=== PATIENT | female | born 1970 | race Caucasian/White ===

== ENCOUNTER 2017-03-26 14:16 | Emergency (ER) | payer SELFPAY ==
[2017-03-26] MEDS ORDERED: Albuterol/Ipratropium 3.0-0.5 MG/3 ML Neb Soln NEB ONE (14:29)
--- NOTE | 2017-03-26 14:59 | EDM.PDOC ---
ED HPI GENERAL MEDICAL PROBLEM - General Chief Complaint: Respiratory Problem Stated Complaint: ASTHMA/TROUBLE BREATHING Time Seen by Provider: 03/26/17 14:22 Source of Information: Reports: Patient History Limitations: Reports: No Limitations - History of Present Illness INITIAL COMMENTS - FREE TEXT/NARRATIVE: HISTORY AND PHYSICAL: History of present illness: Patient is a 46-year-old female who presents to the emergency room today with complaints of asthma "flareup". States she has a Ventolin inhaler which she uses for her asthma symptoms and over the past 4 days she has had more difficulty breathing, cough and unable to get relief with her medication. Does state that when she feels her chest is tight with her breathing she does have some pain located to the right anterior chest wall. This is nonradiating. Is not accompanied by diaphoresis, nausea, vomiting. Denies any fever or chills. Review of systems: As per history of present illness and below otherwise all systems reviewed and negative. Past medical history: As per history of present illness and as reviewed below otherwise noncontributory. Surgical history: As per history of present illness and as reviewed below otherwise noncontributory. Social history: No reported history of drug or alcohol abuse. Family history: As per history of present illness and as reviewed below otherwise noncontributory. Physical exam: Gen.: Well-developed and well-nourished 46-year-old female. Appears nontoxic. Able to speak in full sentences without shortness of breath. Alert and oriented. HEENT: Atraumatic, normocephalic, pupils reactive, negative for conjunctival pallor or scleral icterus, mucous membranes moist, throat clear, neck supple, nontender, trachea midline. Lungs: Expiratory wheezing to posterior bases, breath sounds equal bilaterally, chest nontender. Nonreproducible with palpation Heart: S1S2, regular, negative for clicks, rubs, or JVD. Abdomen: Soft, nondistended, nontender. Negative for masses or hepatosplenomegaly. Negative for costovertebral tenderness. Pelvis: Stable nontender. Genitourinary: Deferred. Rectal: Deferred. Extremities: Atraumatic, negative for cords or calf pain. Neurovascular unremarkable. Neuro: Awake, alert, oriented. Cranial nerves II through XII unremarkable. Cerebellum unremarkable. Motor and sensory unremarkable throughout. Exam nonfocal. After receiving her DuoNeb, the patient states she does feel improved. Will treat patient with Z-Finesse, Medrol Dosepak and DuoNeb nebs as needed for atypical pneumonia. Patient is agreeable to plan of care and denies any further questions at this time. Diagnostics: CBC, troponin, 2 view chest x-ray Therapeutics: CarltonoNeb Impression: Atypical pneumonia Plan: 1. Please take your antibiotic as prescribed. A steriod has been prescribed to help with the inflammation/swelling of the airways. 2. May perform to nebs every 4-6 hours as needed for difficulty breathing, coughing or shortness of breath. If this does not improve after receiving a treatment may need to seek further medical attention through the emergency room. 3. Follow-up with your primary care provider in the next 1-2 days. If your symptoms worsen or new symptoms develop please return to the emergency room. Definitive disposition and diagnosis as appropriate pending reevaluation and review of above. Right Chest Pain Score (Numeric/FACES): 8 - Related Data Allergies Allergy/AdvReac Type Severity Reaction Status Date / Time No Known Allergies Allergy Verified 03/26/17 14:26 Home Meds: Home Meds Albuterol [Ventolin HFA] 1 - 2 puff IH ASDIRECTED PRN 03/26/17 [History] Past Medical History Respiratory History: Reports: Asthma - Infectious Disease History Infectious Disease History: Reports: Chicken Pox - Past Surgical History GI Surgical History: Reports: Other (See Below) Other GI Surgeries/Procedures: ricardo henriquez Social & Family History - Tobacco Use Smoking Status *Q: Never Smoker Second Hand Smoke Exposure: No - Caffeine Use Caffeine Use: Reports: Soda - Recreational Drug Use Recreational Drug Use: No ED ROS GENERAL - Review of Systems Review Of Systems: ROS reveals no pertinent complaints other than HPI. ED EXAM, GENERAL - Physical Exam Exam: See Below (See dictation) Course - Vital Signs Last Recorded V/S: Last Vital Signs Temp 36.7 C 03/26/17 16:54 Pulse 106 H 03/26/17 16:54 Resp 18 03/26/17 16:54 BP 171/98 H 03/26/17 16:54 Pulse Ox 97 03/26/17 16:54 - Orders/Labs/Meds Labs: Laboratory Tests 03/26/17 03/26/17 Range/Units 14:40 14:40 WBC 15.63 H (4.0-11.0) K/uL RBC 5.41 (4.30-5.90) M/uL Hgb 12.5 (12.0-16.0) g/dL Hct 39.5 (36.0-46.0) % MCV 73.0 L (80.0-98.0) fL MCH 23.1 L (27.0-32.0) pg MCHC 31.6 (31.0-37.0) g/dL RDW Std Deviation 41.0 (28.0-62.0) fl RDW Coeff of Kyle 16 H (11.0-15.0) % Plt Count 333 (150-400) K/uL MPV 10.00 (7.40-12.00) fL Neut % (Auto) 46.7 L (48.0-80.0) % Lymph % (Auto) 26.3 (16.0-40.0) % [place] % (Auto) 6.8 (0.0-15.0) % Eos % (Auto) 19.7 H (0.0-7.0) % Baso % (Auto) 0.5 (0.0-1.5) % Neut # (Auto) 7.3 H (1.4-5.7) K/uL Lymph # (Auto) 4.1 H (0.6-2.4) K/uL [place] # (Auto) 1.1 H (0.0-0.8) K/uL Eos # (Auto) 3.1 H (0.0-0.7) K/uL Baso # (Auto) 0.1 (0.0-0.1) K/uL Nucleated RBC % 0.0 /100WBC Nucleated RBCs # 0 K/uL Troponin I < 0.10 (0.0-0.29) NG/ML Meds: Medications Discontinued Medications Generic Name Dose Route Start Last Admin Trade Name Freq PRN Reason Stop Dose Admin Albuterol/Ipratropium 3 ml 03/26/17 14:29 03/26/17 14:48 Duoneb 3.0-0.5 Mg/3 Ml NEB 03/26/17 14:30 3 ml ONETIME ONE Administration Methylprednisolone Sodium Succinate 125 mg 03/26/17 16:11 03/26/17 16:31 Solu-Medrol IM 03/26/17 16:12 125 mg ONETIME ONE Administration Departure - Departure Time of Disposition: 16:15 Disposition: Home, Self-Care 01 Clinical Impression: Atypical pneumonia - Discharge Information Instructions: Community-Acquired Pneumonia, Adult, [id number] Referrals: PCP,None [Primary Care Provider] - Forms: ED Department Discharge Additional Instructions: My general discharge The following information is given to patients seen in the emergency department who are being discharged to home. This information is to outline your options for follow-up care. We provide all patients seen in our emergency department with a follow-up referral. The need for follow-up, as well as the timing and circumstances, are variable depending upon the specifics of your emergency department visit. If you don't have a primary care physician on staff, we will provide you with a referral. We always advise you to contact your personal physician following an emergency department visit to inform them of the circumstance of the visit and for follow-up with them and/or the need for any referrals to a consulting specialist. The emergency department will also refer you to a specialist when appropriate. This referral assures that you have the opportunity for follow-up care with a specialist. All of these measure are taken in an effort to provide you with optimal care, which includes your follow-up. Under all circumstances we always encourage you to contact your private physician who remains a resource for coordinating your care. When calling for follow-up care, please make the office aware that this follow-up is from your recent emergency room visit. If for any reason you are refused follow-up, please contact the [facility] Emergency Department at and asked to speak to the emergency department charge nurse. 1. Please take your antibiotic as prescribed. A steroid has been prescribed to help with the inflammation/swelling of the airways. 2. May perform to nebs every 4-6 hours as needed for difficulty breathing, coughing or shortness of breath. If this does not improve after receiving a treatment may need to seek further medical attention through the emergency room. 3. Follow-up with your primary care provider in the next 1-2 days. If your symptoms worsen or new symptoms develop please return to the emergency room.
--- NOTE | 2017-03-26 15:48 | CR ---
EXAMINATION: Two-view chest (PA and Lateral views). HISTORY: Shortness of breath. FINDINGS: The trachea is midline. The cardiomediastinal silhouette is within normal limits. No pulmonary infilt rates, effusions or pneumothorax. Probable calcified hilar lymph nodes. Osseous structures appear unremarkable. IMPRESSION: No acute cardiopulmonary process.
[2017-03-26] MEDS ORDERED: methylPREDNISolone Sodium Succinate 125 MG/2 ML SDV IM ONE (16:11)
== END 2017-03-26 16:52 | disposition home or self-care (01) ==
LOC: MW.ED 14:16
DX: J18.9 Pneumonia, unspecified organism (principal)
CPT/HCPCS: 36415; 71020; 84484; 85025; 93005; 96372; 99285; J2930; 99284